=== PATIENT | male | born 2000 | race Two or more races ===

== ENCOUNTER 2022-11-17 20:07 | Emergency (ER) | payer MEDICAID, SELFPAY ==
[2022-11-17 20:52] VITALS: BP 126/85; PULSE 98; RESP 18; TEMP 36.3; O2SAT 96; BMI 43.6
--- NOTE | 2022-11-17 20:54 | ED.GENADULT ---
HPI - General Adult General Chief complaint: Abdominal Pain <SERAFIN Lin - Last Filed: 11/17/22 20:55> Stated complaint: Abdominal pain/Headache <SERAFIN Lin - Last Filed: 11/17/22 20:55> Time Seen by Provider: 11/17/22 21:39 <SERAFIN Lin - Last Filed: 11/17/22 20:55> Source: patient <Constantin Marcelo MD - Last Filed: 11/17/22 22:11> Mode of arrival: ambulatory <Constantin Marcelo MD - Last Filed: 11/17/22 22:11> Limitations: no limitations <Constantin Marcelo MD - Last Filed: 11/17/22 22:11> History of Present Illness HPI narrative: Patient having headache body aches epigastric pain and nausea all day today also had 2 loose bowels no fever no chills no cough no other family member sick <Constantin Marcelo MD - Last Filed: 11/17/22 22:11> Related Data Home medications: Previous Rx's Medication Instructions Recorded ondansetron 4 mg disintegrating 4 mg PO Q6-8H PRN nausea and 11/17/22 tablet vomiting #5 tabs <SERAFIN Lin - Last Filed: 11/17/22 20:55> Allergies/adverse reactions: Allergies Allergy/AdvReac Type Severity Reaction Status Date / Time No Known Allergies Allergy Verified 11/17/22 20:51 <SERAFIN Lin - Last Filed: 11/17/22 20:55> Review of Systems Review of Systems: Yes all other systems are reviewed and are negative <Constantin Marcelo MD - Last Filed: 11/17/22 22:11> [facility] Social History Social History: Social History Alcohol intake: never Smoked in Last 30 Days: No Use of substances other than those prescribed or required for medical reasons: No <SERAFIN Lin - Last Filed: 11/17/22 20:55> Physical Exam ED Vital Signs: Vital Signs - 24 hr 11/17/22 20:52 Temperature 97.3 F Pulse Rate 98 Respiratory Rate 18 Blood Pressure 126/85 Pulse Oximetry 96 Oxygen Delivery Method Room Air BMI result Body Mass Index 43.6 <SERAFIN Lin - Last Filed: 11/17/22 20:55> Vital Signs - 24 hr 11/17/22 20:52 Temperature 97.3 F Pulse Rate 98 Respiratory Rate 18 Blood Pressure 126/85 Pulse Oximetry 96 Oxygen Delivery Method Room Air BMI result Body Mass Index 43.6 <Constantin Marcelo MD - Last Filed: 11/17/22 22:11> Appearance: Alert. Oriented X3. No acute distress. ENT: Pharynx normal. Oral Mucosa moist Neck: Normal inspection. Neck supple. CVS: Normal heart rate and rhythm. Pulses normal. Respiratory: No respiratory distress. Equal air entry bilateral, Abdomen: Soft and nontender. Bowel sounds are present, no mass palpable, no CVA tenderness Skin: Skin warm and dry. Normal skin color. Normal skin turgor. Neuro: Oriented X 3. <Constantin Marcelo MD - Last Filed: 11/17/22 22:11> Course Course Course Narrative: RME performed by Dalia Marcelino PA-C. Patient is a 22 year old male presenting to the emergency department with nausea, abdominal pain, and feeling generally unwell. Swabs, UA, and labs ordered. Patient placed back in the waiting room pending room availability and results. <SERAFIN Lin - Last Filed: 11/17/22 20:55> Medical Decision Making Medical Decision Making [facility] Narrative: Patient clinically with stomach virus labs stable discharge patient home <Constantin Marcelo MD - Last Filed: 11/17/22 22:11> Lab Data [facility] Lab Attestation statement: I reviewed the patient's lab results. <Constantin Marcelo MD - Last Filed: 11/17/22 22:11> Result Diagrams: 11/17/22 21:12 11/17/22 21:12 <SERAFIN Lin - Last Filed: 11/17/22 20:55> Labs: Lab Results 11/17/22 11/17/22 11/17/22 Range/Units 21:12 21:12 21:12 WBC 8.1 (4.8-10.8) X10*3/uL RBC 6.13 H (4.60-5.80) X10*6/uL Hgb 15.4 (14.0-18.0) g/dl Hct 48.6 (42.0-52.0) % MCV 79.3 L (80.0-98.0) fL MCH 25.1 L (27.0-33.0) pg MCHC 31.7 (31.0-36.0) g/dl RDW 12.9 (11.0-16.0) % Plt Count 248 (160-400) X10*3/uL MPV 11.5 (9.4-12.4) fL Immature Gran % (Auto) 0.2 (0.0-0.4) % Neut % (Auto) 73.4 H (45-73) % Lymph % (Auto) 18.1 L (20-40) % [place] % (Auto) 7.4 (2-11) % Eos % (Auto) 0.7 (0-4) % Baso % (Auto) 0.2 (0-2) % Lymph # (Auto) 1.5 (1.2-4.9) X10*3/uL [place] # (Auto) 0.6 (0.1-1.2) X10*3/uL Eos # (Auto) 0.1 (0.0-0.4) X10*3/uL Baso # (Auto) 0.0 (0.0-0.2) X10*3/uL Abs Immat Gran (auto) 0.02 (0.00-0.03) X10*3/uL Absolute Neuts (auto) 6.0 (2.0-8.3) x10*3/uL Absolute Nucleated RBC 0.000 (0.0-0.012) X10*3/uL Nucleated RBC % (auto) 0.0 (0.0-0.2) /100WBC Sodium 138 (135-145) mmol/L Potassium 3.6 (3.3-5.1) mmol/L Chloride 105 (96-108) mmol/L Carbon Dioxide 26 (22-29) mmol/L Anion Gap 11 L (12-20) BUN 10 (9-16) mg/dL Creatinine 0.77 (0.5-1.4) mg/dL Estim Creat Clear Calc 190.3 Estimated GFR > 60 Random Glucose 87 (60-115) mg/dL Calcium 8.9 (8.4-10.2) mg/dL Magnesium 1.7 (1.6-2.6) mg/dL Total Bilirubin 0.4 (0.0-1.0) mg/dL AST 16 (5-37) U/L ALT 24 (0-40) U/L Alkaline Phosphatase 59 (39-117) U/L Total Protein 7.0 (6.5-8.0) g/dL Albumin 4.3 (3.5-5.0) g/dL Urine Color Urine Appearance Urine pH (5.0-9.0) Ur Specific Dougherty (1.005-1.025) Urine Protein (Neg-Trace) mg/dL Urine Glucose (UA) (Negative) mg/dL Urine Ketones (Negative) mg/dL Urine Blood (Negative) Urine Nitrite (Negative) Ur Leukocyte Esterase (Negative) COVID-19 ([place]A) Negative (Negative) COVID-19 Clin Com See Note 11/17/22 Range/Units 21:12 WBC (4.8-10.8) X10*3/uL RBC (4.60-5.80) X10*6/uL Hgb (14.0-18.0) g/dl Hct (42.0-52.0) % MCV (80.0-98.0) fL MCH (27.0-33.0) pg MCHC (31.0-36.0) g/dl RDW (11.0-16.0) % Plt Count (160-400) X10*3/uL MPV (9.4-12.4) fL Immature Gran % (Auto) (0.0-0.4) % Neut % (Auto) (45-73) % Lymph % (Auto) (20-40) % [place] % (Auto) (2-11) % Eos % (Auto) (0-4) % Baso % (Auto) (0-2) % Lymph # (Auto) (1.2-4.9) X10*3/uL [place] # (Auto) (0.1-1.2) X10*3/uL Eos # (Auto) (0.0-0.4) X10*3/uL Baso # (Auto) (0.0-0.2) X10*3/uL Abs Immat Gran (auto) (0.00-0.03) X10*3/uL Absolute Neuts (auto) (2.0-8.3) x10*3/uL Absolute Nucleated RBC (0.0-0.012) X10*3/uL Nucleated RBC % (auto) (0.0-0.2) /100WBC Sodium (135-145) mmol/L Potassium (3.3-5.1) mmol/L Chloride (96-108) mmol/L Carbon Dioxide (22-29) mmol/L Anion Gap (12-20) BUN (9-16) mg/dL Creatinine (0.5-1.4) mg/dL Estim Creat Clear Calc Estimated GFR Random Glucose (60-115) mg/dL Calcium (8.4-10.2) mg/dL Magnesium (1.6-2.6) mg/dL Total Bilirubin (0.0-1.0) mg/dL AST (5-37) U/L ALT (0-40) U/L Alkaline Phosphatase (39-117) U/L Total Protein (6.5-8.0) g/dL Albumin (3.5-5.0) g/dL Urine Color Yellow Urine Appearance Clear Urine pH 5.5 (5.0-9.0) Ur Specific [place] 1.015 (1.005-1.025) Urine Protein Negative (Neg-Trace) mg/dL Urine Glucose (UA) Negative (Negative) mg/dL Urine Ketones Negative (Negative) mg/dL Urine Blood Negative (Negative) Urine Nitrite Negative (Negative) Ur Leukocyte Esterase Negative (Negative) COVID-19 ([place]) (Negative) COVID-19 Clin Com <SERAFIN Lin - Last Filed: 11/17/22 20:55> Lab Results 11/17/22 11/17/22 11/17/22 Range/Units 21:12 21:12 21:12 WBC 8.1 (4.8-10.8) X10*3/uL RBC 6.13 H (4.60-5.80) X10*6/uL Hgb 15.4 (14.0-18.0) g/dl Hct 48.6 (42.0-52.0) % MCV 79.3 L (80.0-98.0) fL MCH 25.1 L (27.0-33.0) pg MCHC 31.7 (31.0-36.0) g/dl RDW 12.9 (11.0-16.0) % Plt Count 248 (160-400) X10*3/uL MPV 11.5 (9.4-12.4) fL Immature Gran % (Auto) 0.2 (0.0-0.4) % Neut % (Auto) 73.4 H (45-73) % Lymph % (Auto) 18.1 L (20-40) % [place] % (Auto) 7.4 (2-11) % Eos % (Auto) 0.7 (0-4) % Baso % (Auto) 0.2 (0-2) % Lymph # (Auto) 1.5 (1.2-4.9) X10*3/uL [place] # (Auto) 0.6 (0.1-1.2) X10*3/uL Eos # (Auto) 0.1 (0.0-0.4) X10*3/uL Baso # (Auto) 0.0 (0.0-0.2) X10*3/uL Abs Immat Gran (auto) 0.02 (0.00-0.03) X10*3/uL Absolute Neuts (auto) 6.0 (2.0-8.3) x10*3/uL Absolute Nucleated RBC 0.000 (0.0-0.012) X10*3/uL Nucleated RBC % (auto) 0.0 (0.0-0.2) /100WBC Sodium 138 (135-145) mmol/L Potassium 3.6 (3.3-5.1) mmol/L Chloride 105 (96-108) mmol/L Carbon Dioxide 26 (22-29) mmol/L Anion Gap 11 L (12-20) BUN 10 (9-16) mg/dL Creatinine 0.77 (0.5-1.4) mg/dL Estim Creat Clear Calc 190.3 Estimated GFR > 60 Random Glucose 87 (60-115) mg/dL Calcium 8.9 (8.4-10.2) mg/dL Magnesium 1.7 (1.6-2.6) mg/dL Total Bilirubin 0.4 (0.0-1.0) mg/dL AST 16 (5-37) U/L ALT 24 (0-40) U/L Alkaline Phosphatase 59 (39-117) U/L Total Protein 7.0 (6.5-8.0) g/dL Albumin 4.3 (3.5-5.0) g/dL Urine Color Urine Appearance Urine pH (5.0-9.0) Ur Specific [place] (1.005-1.025) Urine Protein (Neg-Trace) mg/dL Urine Glucose (UA) (Negative) mg/dL Urine Ketones (Negative) mg/dL Urine Blood (Negative) Urine Nitrite (Negative) Ur Leukocyte Esterase (Negative) COVID-19 ([place]) Negative (Negative) COVID-19 Clin Com See Note 11/17/22 Range/Units 21:12 WBC (4.8-10.8) X10*3/uL RBC (4.60-5.80) X10*6/uL Hgb (14.0-18.0) g/dl Hct (42.0-52.0) % MCV (80.0-98.0) fL MCH (27.0-33.0) pg MCHC (31.0-36.0) g/dl RDW (11.0-16.0) % Plt Count (160-400) X10*3/uL MPV (9.4-12.4) fL Immature Gran % (Auto) (0.0-0.4) % Neut % (Auto) (45-73) % Lymph % (Auto) (20-40) % [place] % (Auto) (2-11) % Eos % (Auto) (0-4) % Baso % (Auto) (0-2) % Lymph # (Auto) (1.2-4.9) X10*3/uL [place] # (Auto) (0.1-1.2) X10*3/uL Eos # (Auto) (0.0-0.4) X10*3/uL Baso # (Auto) (0.0-0.2) X10*3/uL Abs Immat Gran (auto) (0.00-0.03) X10*3/uL Absolute Neuts (auto) (2.0-8.3) x10*3/uL Absolute Nucleated RBC (0.0-0.012) X10*3/uL Nucleated RBC % (auto) (0.0-0.2) /100WBC Sodium (135-145) mmol/L Potassium (3.3-5.1) mmol/L Chloride (96-108) mmol/L Carbon Dioxide (22-29) mmol/L Anion Gap (12-20) BUN (9-16) mg/dL Creatinine (0.5-1.4) mg/dL Estim Creat Clear Calc Estimated GFR Random Glucose (60-115) mg/dL Calcium (8.4-10.2) mg/dL Magnesium (1.6-2.6) mg/dL Total Bilirubin (0.0-1.0) mg/dL AST (5-37) U/L ALT (0-40) U/L Alkaline Phosphatase (39-117) U/L Total Protein (6.5-8.0) g/dL Albumin (3.5-5.0) g/dL Urine Color Yellow Urine Appearance Clear Urine pH 5.5 (5.0-9.0) Ur Specific [place] 1.015 (1.005-1.025) Urine Protein Negative (Neg-Trace) mg/dL Urine Glucose (UA) Negative (Negative) mg/dL Urine Ketones Negative (Negative) mg/dL Urine Blood Negative (Negative) Urine Nitrite Negative (Negative) Ur Leukocyte Esterase Negative (Negative) COVID-19 ([place]) (Negative) COVID-19 Clin Com <Constantin Marcelo MD - Last Filed: 11/17/22 22:11> Discharge Plan Discharge Clinical Impression: Acute viral syndrome <SERAFIN Lin - Last Filed: 11/17/22 20:55> Patient Disposition: Home, Self-Care <SERAFIN Lin - Last Filed: 11/17/22 20:55> Instructions: Viral Syndrome (ED) <SERAFIN Lin - Last Filed: 11/17/22 20:55> Additional Instructions: Drink plenty of fluids Tylenol/ Motrin for headache Medicine for nausea as prescribed Beber mucho l?quido Tylenol/Motrin para el dolor de lucero Medicamentos para las n?useas seg?n lo prescrito <SERAFIN Lin - Last Filed: 11/17/22 20:55> Prescriptions: New ondansetron 4 mg tablet,disintegrating 4 mg PO Q6-8H PRN (Reason: nausea and vomiting) Qty: 5 0RF <SERAFIN Lin - Last Filed: 11/17/22 20:55> Stand Alone Forms: Work/School Release <SERAFIN Lin - Last Filed: 11/17/22 20:55> Print Language: Japanese <SERAFIN Lin - Last Filed: 11/17/22 20:55>
[2022-11-17 21:20] LABS: MANUAL DIFF FLAG NO
[2022-11-17 21:22] LABS: Basophils Percent Auto 0.2 % (0-2); Eosinophils Absolute Auto 0.1 X10*3/uL (0.0-0.4); Eosinophils Percent Auto 0.7 % (0-4); Hematocrit 48.6 % (42.0-52.0); Hemoglobin 15.4 g/dl (14.0-18.0); Imm Gran Abs Auto 0.02 X10*3/uL (0.00-0.03); Imm Gran Pct Auto 0.2 % (0.0-0.4); Lymphocytes Absolute Auto 1.5 X10*3/uL (1.2-4.9); Lymphocytes Percent Auto 18.1 % (20-40); Mean Corpuscular HGB Conc 31.7 g/dl (31.0-36.0); Mean Corpuscular Hemoglobin 25.1 pg (27.0-33.0); Mean Corpuscular Volume 79.3 fL (80.0-98.0); Mean Platelet Volume 11.5 fL (9.4-12.4); Monocytes Absolute Auto 0.6 X10*3/uL (0.1-1.2); Monocytes Percent Auto 7.4 % (2-11); Neutrophils Percent Auto 73.4 % (45-73); Platelet Count 248 X10*3/uL (160-400); Red Blood Count 6.13 X10*6/uL (4.60-5.80); Red Cell Distribution Width 12.9 % (11.0-16.0); White Blood Count 8.1 X10*3/uL (4.8-10.8)
[2022-11-17 21:23] LABS: Appearance Urine Clear; Color Urine Yellow; Glucose Urine UA Negative (Negative); Leukocyte Esterase Urine Negative (Negative); Nitrite Urine Negative (Negative); PH 5.5 (5.0-9.0); Specific Gravity - Urine 1.015 (1.005-1.025); Urine Blood Negative (Negative); Urine Ketones Negative (Negative); Urine Protein Negative (Neg-Trace)
[2022-11-17 21:38] LABS: Alanine Aminotransferase 24 U/L (0-40); Albumin Level 4.3 g/dL (3.5-5.0); Alkaline Phosphatase 59 U/L (39-117); Anion Gap 11 (12-20); Aspartate Amino Transferase 16 U/L (5-37); Bilirubin Total 0.4 mg/dL (0.0-1.0); Blood Urea Nitrogen 10 mg/dL (9-16); Calcium 8.9 mg/dL (8.4-10.2); Carbon Dioxide 26 mmol/L (22-29); Chloride 105 mmol/L (96-108); Creatinine Clr Calc Pharmacy 190.3; Estimated Glomerular Filt Rate > 60; Glucose Random 87 mg/dL (60-115); Magnesium 1.7 mg/dL (1.6-2.6); Potassium 3.6 mmol/L (3.3-5.1); Sodium 138 mmol/L (135-145)
[2022-11-17 22:03] LABS: COVID-19 Test Negative (Negative); IDNOW Serial# 6674DD1D
[2022-11-17] MEDS: Magnesium Hydrox/Alum Hydrox 30 ML ORAL.SUSP PO (22:28)
[2022-11-17] MEDS: Ondansetron ODT 4 MG TAB.RAPDIS TRANSLINGU (22:28)
== END 2022-11-17 22:36 | disposition home or self-care (01) ==
PROVIDERS: Physician Assistant Medical; Emergency Provider Internal Medicine
DX: B34.9 Viral infection, unspecified (principal); Z20.822 Contact with and (suspected) exposure to COVID-19
CPT/HCPCS: 80053; 81003; 83735; 85025; 87635; 99283; 99284

== ENCOUNTER 2024-01-14 18:02 | Emergency (ER) | payer MEDICAID, SELFPAY ==
[2024-01-14 19:19] VITALS: BP 147/87; PULSE 105; RESP 18; TEMP 37.1; O2SAT 98; BMI 29.9
--- NOTE | 2024-01-14 19:21 | ED.EYEPROB ---
HPI - Eye Problem General Chief complaint: Eye Problems Stated complaint: itchy eyes Time Seen by Provider: 01/14/24 19:21 Source: patient Mode of arrival: ambulatory Limitations: no limitations History of Present Illness HPI Narrative: 23-year-old Senegalese-speaking male presents to the ER for evaluation of itchy, watery and swollen eyes for the last several days. 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 He used to be on Claritin but no longer takes it. He denies any foreign body sensation but feels as eyes are itchy. When he itches them they feel worse. He feels the tissues around the eyes are swollen and puffy. Also has some mild nasal congestion. No fevers or chills. No cough, shortness of breath, chest pain or difficulty breathing. No vision changes. MD chief complaint: eye pain and other (watery eyes ) Onset (ago): day(s) Onset description: gradual Duration: progressively worsening Location: both eyes Eye Symptoms: burning, redness and itching Place: work Mechanism: none Severity: moderate If Pain, Quality: burning Associated symptoms: none Treatments Prior to Arrival: none Related Data Previous Rx's ?Medication ?Instructions ?Recorded ondansetron 4 mg disintegrating 4 mg PO Q6-8H PRN nausea and 11/17/22 tablet vomiting #5 tabs cetirizine 10 mg tablet (Zyrtec) 10 mg PO DAILY #30 tabs 01/14/24 fluticasone propionate 50 1 spray intranasal Q12H #16 grams 01/14/24 mcg/actuation nasal spray,suspension (Flonase Allergy Relief) Allergies Allergy/AdvReac Type Severity Reaction Status Date / Time No Known Allergies Allergy Verified 01/14/24 19:20 Review of Systems Review of Systems: Yes all other systems are reviewed and are negative PMFSH Social History Social History Alcohol intake: never Advance Directives: No Advance Directives Information Provided: No Do you have a plan to hurt others: No Plan Physical Exam Vital Signs: Vital Signs: Last Vital Signs Temp 98.7 F 01/14/24 19:19 Pulse 105 H 01/14/24 19:19 Resp 18 01/14/24 19:19 BP 147/87 H 01/14/24 19:19 Pulse Ox 98 01/14/24 19:19 O2 Del Method Room Air 01/14/24 19:19 BMI result Body Mass Index 29.9 Appearance: Alert. Oriented X3. No acute distress. Head: normocephalic, atraumatic. Eyes: Pupils equal, round and reactive to light. Minimal bilateral scleral injection, mild amount of tearing. Trace amount of periorbital edema bilaterally. No discharge EOMI ENT: Pharynx normal. No tonsillar swelling or exudate. Neck: Normal inspection. Neck supple. No lymphadenopathy CVS: Normal heart rate and rhythm. Pulses normal. Respiratory: No respiratory distress. Breath sounds normal. Skin: Skin warm and dry. Normal skin color. Normal skin turgor. No rashes. Extremities: No lower extremity edema. No joint swelling. Neuro/psych: Oriented X 3. Grossly normal and nonfocal Medical Decision Making Medical Decision Making MDM Narrative: 23-year-old male presents the ER for evaluation of bilateral itchy and watery eyes. No foreign body sensation or vision changes. Exam and clinical presentation are consistent with allergic conjunctivitis. He has some nasal congestion as well. Will start patient on Zyrtec and Flonase. He was counseled to follow up with the primary care doctor, given referral for primary care doctors in the area as he does not have 1. We discussed other symptomatic relief and return precautions. stable for discharge home Differential Diagnosis Differential Diagnoses: The differential diagnosis associated with the presentation includes Allergic conjunctivitis, bacterial conjunctivitis, viral conjunctivitis, no evidence of preseptal cellulitis Prescription Management I considered prescription management with: Antibiotic Critical Care Time Critical Care Time Critical Care Time: No Discharge Plan Discharge Clinical Impression: Seasonal allergic conjunctivitis Patient Disposition: Home, Self-Care Instructions: Conjunctivitis (ED) Additional Instructions: take the prescribed medication each morning for the next 2 weeks at least. if your symptoms improved, continue this through the spring use over the counter eye drops like Visine do not rub your eyes. use cool compresses as needed for itching and swelling If you develop new or worsening symptoms call 911 or come back to the ER for further evaluation. Prescriptions: New fluticasone propionate [Flonase Allergy Relief] 50 mcg/actuation spray,suspension 1 spray intranasal Q12H Qty: 16 0RF Rx Instructions: administer into each nostril cetirizine [Zyrtec] 10 mg tablet 10 mg PO DAILY Qty: 30 0RF No Action ondansetron 4 mg tablet,disintegrating 4 mg PO Q6-8H PRN (Reason: nausea and vomiting) Qty: 5 0RF Referrals: [facility] [place] Family Medicine [Provider Group] [facility] [place] [Provider Group] Stand Alone Forms: Work/School Release Discharge Date/Time: 01/14/24 19:43 Print Language: Senegalese
== END 2024-01-14 19:43 | disposition home or self-care (01) ==
LOC: HO.ED 19:36
PROVIDERS: Emergency Provider Emergency Medicine
DX: H10.10 Acute atopic conjunctivitis, unspecified eye (principal)
CPT/HCPCS: 99281